=== PATIENT | male | born 1955 | race Two or more races ===

== ENCOUNTER 2018-03-21 08:42 | Emergency (ER) | payer OTHER ==
[~2018-03-21] VITALS: Ht 172.7 cm; Wt 70.9 kg
--- NOTE | 2018-03-21 09:52 | NUR ---
Report from BRIAN Hampton. Patient resting comfortably in [facility]. No needs.
[2018-03-21 10:03] LABS: BASOPHILS # (AUTO) 0.05 x10^3/uL (0-0.1); BASOPHILS % (AUTO) 1 % (0-1); EOSINOPHILS # (AUTO) 0.09 x10^3/uL (0-0.4); EOSINOPHILS % (AUTO) 1 % (1-7); LYMPHOCYTES # (AUTO) 1.24 x10^3/uL (1-3.4); LYMPHOCYTES % (AUTO) 15 % (22-44); MD NO; MEAN CORPUSCULAR HEMOGLOBIN 22.7 pg (27.5-34.5); MEAN CORPUSCULAR HGB CONC 31.9 g/dL (33.2-36.2); MEAN CORPUSCULAR VOLUME 71.3 fL (81-97); MEAN PLATELET VOLUME 8.9 fL (7.4-10.4); MONOCYTES # (AUTO) 0.95 x10^3/uL (0.2-0.8); MONOCYTES % (AUTO) 11 % (2-9); NEUTROPHILS # (AUTO) 6.02 x10^3/uL (1.8-6.8); NEUTROPHILS % (AUTO) 72 % (42-75); PLATELET COUNT 199 x10^3/uL (130-400); RED CELL DISTRIBUTION WIDTH 14.9 % (9.4-14.8)
[2018-03-21 10:05] LABS: ANION GAP 3 mmol/L (5-15); CALCIUM 9.9 mg/dL (8.5-10.1); CHLORIDE 106 mmol/L (98-107); INTERNATIONAL NORMALIZED RATIO 2.84 (0.93-1.1); PROTHROMBIN TIME 28.9 Seconds (9.6-11.5)
[2018-03-21 10:11] LABS: HCT (SEDRATE) 45.6 % (39.2-51.8)
--- NOTE | 2018-03-21 10:38 | NUR ---
Daughter at bedside. Provided with blanket.
[2018-03-21 11:42] VITALS: BP 135/65
== END 2018-03-21 12:14 ==
LOC: ED 10:30
DX: L03.032 Cellulitis of left toe (principal); M10.072 Idiopathic gout, left ankle and foot; R73.9 Hyperglycemia, unspecified; I10 Essential (primary) hypertension; Z95.2 Presence of prosthetic heart valve
CPT/HCPCS: 36415; 80048; 82040; 84550; 85025; 85610; 85651; 85730; 86141; 99284

== ENCOUNTER 2019-06-21 13:23 | Emergency (ER) | payer OTHER ==
[~2019-06-21] VITALS: Ht 172.7 cm; Wt 72.3 kg
--- NOTE | 2019-06-21 13:40 | NUR ---
PT STATES HE HAS NAUSEA, DIZZINESS AND BLURRED VISION STARTING THIS AM. NO CP OR SOB. PT NOT IN DISTRESS. NEURO INTACT. VSS.
--- NOTE | 2019-06-21 14:21 | NUR ---
LAB IN TO DRAW.
[2019-06-21 14:41] LABS: BASOPHILS # (AUTO) 0.02 x10^3/uL (0-0.1); BASOPHILS % (AUTO) 0 % (0-1); EOSINOPHILS # (AUTO) 0.38 x10^3/uL (0-0.4); EOSINOPHILS % (AUTO) 5 % (1-7); LYMPHOCYTES # (AUTO) 1.16 x10^3/uL (1-3.4); LYMPHOCYTES % (AUTO) 16 % (22-44); MD NO; MEAN CORPUSCULAR HEMOGLOBIN 23.8 pg (27.5-34.5); MEAN CORPUSCULAR HGB CONC 31.4 g/dL (33.2-36.2); MEAN CORPUSCULAR VOLUME 75.8 fL (81-97); MEAN PLATELET VOLUME 8.5 fL (7.4-10.4); MONOCYTES # (AUTO) 0.38 x10^3/uL (0.2-0.8); MONOCYTES % (AUTO) 5 % (2-9); NEUTROPHILS # (AUTO) 5.17 x10^3/uL (1.8-6.8); NEUTROPHILS % (AUTO) 73 % (42-75); PLATELET COUNT 219 x10^3/uL (130-400); RED BLOOD COUNT 5.62 x10^6/uL (4.38-5.82); RED CELL DISTRIBUTION WIDTH 16.4 % (9.4-14.8)
[2019-06-21 14:43] LABS: INTERNATIONAL NORMALIZED RATIO 1.99 (0.93-1.1); PROTHROMBIN TIME 21.2 Seconds (9.6-11.5)
[2019-06-21 14:46] LABS: ALBUMIN 3.8 g/dL (3.4-5.0); ANION GAP 6 mmol/L (5-15); CALCIUM 9.3 mg/dL (8.5-10.1); CHLORIDE 109 mmol/L (98-107)
[2019-06-21 14:51] LABS: ALANINE AMINOTRANSFERASE 28 U/L (12-78); ALKALINE PHOSPHATASE 80 U/L (45-117); BILIRUBIN,TOTAL 0.7 mg/dL (0.2-1.0); CREATININE 1.24 mg/dL (0.7-1.3); TOTAL PROTEIN 8.1 g/dL (6.4-8.2)
[2019-06-21 15:06] VITALS: BP 168/68
--- NOTE | 2019-06-21 15:06 | NUR ---
Patient/Caregiver given discharge instructions and they have confirmed that they understand the instructions. Patient ambulatory with steady gait.
== END 2019-06-21 15:08 | disposition home or self-care (01) ==
LOC: ED 14:57
DX: R53.1 Weakness (principal); R11.0 Nausea; R42 Dizziness and giddiness; R41.0 Disorientation, unspecified; I10 Essential (primary) hypertension; E11.9 Type 2 diabetes mellitus without complications; Z79.01 Long term (current) use of anticoagulants
CPT/HCPCS: 36415; 80053; 84484; 85025; 85610; 99283

== ENCOUNTER 2019-06-24 13:56 | Inpatient (IN) | payer OTHER ==
[~2019-06-24] VITALS: Ht 172.7 cm; Wt 64.4 kg
[2019-06-24 15:52] LABS: BASOPHILS # (AUTO) 0.05 x10^3/uL (0-0.1); BASOPHILS % (AUTO) 1 % (0-1); EOSINOPHILS # (AUTO) 0.33 x10^3/uL (0-0.4); EOSINOPHILS % (AUTO) 4 % (1-7); LYMPHOCYTES # (AUTO) 1.31 x10^3/uL (1-3.4); LYMPHOCYTES % (AUTO) 16 % (22-44); MD NO; MEAN CORPUSCULAR HEMOGLOBIN 23.8 pg (27.5-34.5); MEAN CORPUSCULAR HGB CONC 31.6 g/dL (33.2-36.2); MEAN CORPUSCULAR VOLUME 75.3 fL (81-97); MEAN PLATELET VOLUME 8.5 fL (7.4-10.4); MONOCYTES # (AUTO) 0.72 x10^3/uL (0.2-0.8); MONOCYTES % (AUTO) 9 % (2-9); NEUTROPHILS # (AUTO) 5.71 x10^3/uL (1.8-6.8); NEUTROPHILS % (AUTO) 70 % (42-75); PLATELET COUNT 204 x10^3/uL (130-400); RED CELL DISTRIBUTION WIDTH 16.3 % (9.4-14.8)
--- NOTE | 2019-06-24 16:01 | NUR ---
PT RESTING IN [facility]. VSS. NAD. SON IS BEDSIDE. NO NEEDS AT THIS TIME
[2019-06-24 16:05] LABS: ANION GAP 6 mmol/L (5-15); CALCIUM 8.8 mg/dL (8.5-10.1); CHLORIDE 106 mmol/L (98-107); CREATININE 1.37 mg/dL (0.7-1.3)
[2019-06-24 16:06] LABS: ALANINE AMINOTRANSFERASE 28 U/L (12-78); ALBUMIN 3.7 g/dL (3.4-5.0)
[2019-06-24 16:09] LABS: ALKALINE PHOSPHATASE 85 U/L (45-117); BILIRUBIN,TOTAL 0.5 mg/dL (0.2-1.0); TOTAL PROTEIN 8.1 g/dL (6.4-8.2); TROPONIN I 0.018 ng/mL (0.000-0.045)
[2019-06-24] MEDS ORDERED: ASPIRIN 325 MG TABLET ONE (17:50)
[2019-06-24] MEDS ORDERED: ASPIRIN 325 MG TABLET PO ONE (18:00)
--- NOTE | 2019-06-24 18:17 | NUR ---
PT RESTING IN [facility]. TBADM. EDUCATED ON PLAN OF CARE
[2019-06-24 18:33] LABS: INTERNATIONAL NORMALIZED RATIO 1.93 (0.93-1.1); PROTHROMBIN TIME 20.6 Seconds (9.6-11.5)
--- NOTE | 2019-06-24 18:42 | NUR ---
BREAK RN: PT OOB GAIT STEADY TO BATHROOM W/ FAMILY MEMBER. TBADM. AWAITING MRI.
--- NOTE | 2019-06-24 19:18 | NUR ---
PT TO MRI AT THIS TIME
[2019-06-24] MEDS ORDERED: BISACODYL 10 MG SUPP PR PRN (19:30)
[2019-06-24] MEDS ORDERED: POLYETHYLENE GLYCOL 17 GM PACKET PO PRN (19:30)
[2019-06-24] MEDS ORDERED: DOCUSATE 100 MG CAPSULE PO PRN (19:30)
[2019-06-24] MEDS ORDERED: HEPARIN wt. based STROKE protocol MC SCH (19:30)
[2019-06-24 21:00] VITALS: BP 158/81
[2019-06-24] MEDS ORDERED: ATORVASTATIN 40 MG TABLET PO SCH (21:00)
[2019-06-24] MEDS ORDERED: CLOPIDOGREL 300 MG TABLET PO ONE (21:00)
[2019-06-24] MEDS: ACETAMINOPHEN 650 MG/20.3 ML UDC PO PRN (21:20)
[2019-06-24] MEDS: ATORVASTATIN 80 MG TABLET PO SCH (21:20)
[2019-06-24] MEDS: INSULIN LISPRO 100 UNITS/ML, PEN SQ-INSULIN SCH (21:25)
[2019-06-24] MEDS ORDERED: HEPARIN 25,000 UNITS/250ML PMX 250 ML IV PRN (21:30)
[2019-06-24] MEDS ORDERED: WARFARIN 2.5 MG TABLET PO-COUM ONE (21:30)
[2019-06-24] MEDS ORDERED: PROB500T22 PO (22:30)
[2019-06-24] MEDS ORDERED: AMLO10TA8 PO (22:36)
[2019-06-24] MEDS ORDERED: METO-290 PO (22:36)
[2019-06-24] MEDS ORDERED: Colchicine (22:36)
[2019-06-24] MEDS ORDERED: METF500T17 PO (22:37)
[2019-06-24] MEDS ORDERED: WARF1TAB74 PO (22:38)
[2019-06-24 23:00] VITALS: BP 142/69
[2019-06-24] MEDS ORDERED: COLCHICINE 0.6 MG CAPSULE PO ONE (23:00)
[2019-06-24] MEDS: metFORMIN 500 MG TABLET PO SCH (23:06)
[2019-06-24] MEDS: PROBENECID 500 MG TABLET PO SCH (23:06)
[2019-06-25] VITALS (7 sets, daily range): BP systolic 128–146; BP diastolic 69–86
[2019-06-25] MEDS ORDERED: COLCHICINE 0.6 MG CAPSULE PO ONE
[2019-06-25] MEDS: ACETAMINOPHEN 650 MG/20.3 ML UDC PO PRN (01:20)
[2019-06-25 06:11] LABS: BASOPHILS # (AUTO) 0.01 x10^3/uL (0-0.1); BASOPHILS % (AUTO) 0 % (0-1); EOSINOPHILS # (AUTO) 0.03 x10^3/uL (0-0.4); EOSINOPHILS % (AUTO) 0 % (1-7); LYMPHOCYTES # (AUTO) 0.65 x10^3/uL (1-3.4); LYMPHOCYTES % (AUTO) 5 % (22-44); MD NO; MEAN CORPUSCULAR HEMOGLOBIN 23.7 pg (27.5-34.5); MEAN CORPUSCULAR HGB CONC 31.4 g/dL (33.2-36.2); MEAN CORPUSCULAR VOLUME 75.2 fL (81-97); MEAN PLATELET VOLUME 8.7 fL (7.4-10.4); MONOCYTES # (AUTO) 0.23 x10^3/uL (0.2-0.8); MONOCYTES % (AUTO) 2 % (2-9); NEUTROPHILS # (AUTO) 11.28 x10^3/uL (1.8-6.8); NEUTROPHILS % (AUTO) 92 % (42-75); PLATELET COUNT 205 x10^3/uL (130-400); RED BLOOD COUNT 5.94 x10^6/uL (4.38-5.82); RED CELL DISTRIBUTION WIDTH 15.4 % (9.4-14.8)
[2019-06-25 06:14] LABS: CHLORIDE 106 mmol/L (98-107)
[2019-06-25 06:25] LABS: ALANINE AMINOTRANSFERASE 29 U/L (12-78); ALBUMIN 3.8 g/dL (3.4-5.0); ALKALINE PHOSPHATASE 86 U/L (45-117); ANION GAP 7 mmol/L (5-15); BILIRUBIN,TOTAL 1.3 mg/dL (0.2-1.0); CALCIUM 9.5 mg/dL (8.5-10.1); CHOL/HDL RATIO 3.6; CHOLESTEROL, TOTAL 175 mg/dL (140-239); CREATININE 1.14 mg/dL (0.7-1.3); HDL CHOL % 27 % (26-37); HDL CHOLESTEROL (DIRECT) 48 mg/dL (40-60); LDL CHOLESTEROL,CALCULATED 109 mg/dL (54-169); LDL/HDL RATIO 2.3 (0.5-3.0); TOTAL PROTEIN 8.5 g/dL (6.4-8.2); TRIGLYCERIDES 92 mg/dL (50-200); VLDL CHOLESTEROL 18 mg/dL (0-25)
[2019-06-25 06:33] LABS: INTERNATIONAL NORMALIZED RATIO 2.3 (0.93-1.1); PROTHROMBIN TIME 24.6 Seconds (9.6-11.5)
[2019-06-25] MEDS: INSULIN LISPRO 100 UNITS/ML, PEN SQ-INSULIN SCH ×4 (08:24→20:38)
[2019-06-25] MEDS ORDERED: ASPIRIN 81 MG TABLET CHEW PO/NG SCH (09:00)
[2019-06-25] MEDS ORDERED: CLOPIDOGREL 75 MG TABLET PO SCH (09:00)
[2019-06-25] MEDS: metFORMIN 500 MG TABLET PO SCH ×2 (09:11→20:41)
[2019-06-25] MEDS: PROBENECID 500 MG TABLET PO SCH ×2 (09:12→20:41)
[2019-06-25] MEDS: AMLODIPINE 10 MG TAB PO SCH (09:12)
[2019-06-25] MEDS: METOPROLOL SUCCINATE 100 MG TAB.ER.24H PO SCH (09:12)
[2019-06-25] MEDS ORDERED: HEPARIN 25,000 UNITS/250ML PMX 250 ML ONE (10:46)
[2019-06-25] MEDS ORDERED: DO NOT GIVE XX PRN (11:00)
[2019-06-25] MEDS ORDERED: HEPARIN wt. based STROKE protocol MC PRN (11:00)
[2019-06-25] MEDS ORDERED: HEPARIN 25,000 UNITS/250ML PMX 250 ML IV PRN (11:30)
[2019-06-25] MEDS ORDERED: methylPREDNISolone SOD SUCC 40 MG/ML IV SCH (12:30)
[2019-06-25] MEDS ORDERED: WARFARIN 2 MG TABLET PO-COUM ONE (18:00)
[2019-06-25] MEDS: ATORVASTATIN 80 MG TABLET PO SCH (20:41)
[2019-06-25 20:45] LABS: INTERNATIONAL NORMALIZED RATIO 2.71 (0.93-1.1)
[2019-06-26 00:55] VITALS: BP 123/69
[2019-06-26 05:00] VITALS: BP 130/72
[2019-06-26 05:17] LABS: INTERNATIONAL NORMALIZED RATIO 3.02 (0.93-1.1); PROTHROMBIN TIME 32.4 Seconds (9.6-11.5)
[2019-06-26 06:44] VITALS: BP 130/68
[2019-06-26] MEDS: AMLODIPINE 10 MG TAB PO SCH (08:09)
[2019-06-26] MEDS: FERROUS SULFATE 325 MG TABLET PO SCH ×2 (08:09→17:54)
[2019-06-26] MEDS: INSULIN LISPRO 100 UNITS/ML, PEN SQ-INSULIN SCH ×4 (08:09→20:41)
[2019-06-26] MEDS: metFORMIN 500 MG TABLET PO SCH ×2 (08:09→20:42)
[2019-06-26] MEDS: METOPROLOL SUCCINATE 100 MG TAB.ER.24H PO SCH (08:09)
[2019-06-26] MEDS: PROBENECID 500 MG TABLET PO SCH ×2 (08:09→20:41)
[2019-06-26] MEDS: ONDANSETRON 4 MG TABLET PO PRN (12:48)
[2019-06-26 13:30] VITALS: BP 131/60
[2019-06-26] MEDS ORDERED: methylPREDNISolone SOD SUCC 40 MG/ML IV ONE (15:00)
[2019-06-26 16:37] VITALS: BP 130/77
[2019-06-26] MEDS ORDERED: WARFARIN 2 MG TABLET PO-COUM ONE (18:00)
[2019-06-26 20:23] VITALS: BP 136/82
[2019-06-26] MEDS: ATORVASTATIN 80 MG TABLET PO SCH (20:41)
[2019-06-27 02:46] VITALS: BP 128/76
[2019-06-27 05:35] LABS: INTERNATIONAL NORMALIZED RATIO 3.37 (0.93-1.1); PROTHROMBIN TIME 36.2 Seconds (9.6-11.5)
[2019-06-27 05:42] LABS: BASOPHILS % (AUTO) 0 % (0-1); EOSINOPHILS % (AUTO) 0 % (1-7); LYMPHOCYTES # (AUTO) 0.76 x10^3/uL (1-3.4); LYMPHOCYTES % (AUTO) 8 % (22-44); MD NO; MEAN CORPUSCULAR HEMOGLOBIN 23.9 pg (27.5-34.5); MEAN CORPUSCULAR HGB CONC 31.3 g/dL (33.2-36.2); MEAN CORPUSCULAR VOLUME 76.6 fL (81-97); MEAN PLATELET VOLUME 8.7 fL (7.4-10.4); MONOCYTES # (AUTO) 0.29 x10^3/uL (0.2-0.8); MONOCYTES % (AUTO) 3 % (2-9); NEUTROPHILS # (AUTO) 8.83 x10^3/uL (1.8-6.8); NEUTROPHILS % (AUTO) 89 % (42-75); PLATELET COUNT 221 x10^3/uL (130-400); RED BLOOD COUNT 5.57 x10^6/uL (4.38-5.82); RED CELL DISTRIBUTION WIDTH 15.9 % (9.4-14.8)
[2019-06-27 05:52] LABS: CHLORIDE 106 mmol/L (98-107)
[2019-06-27 05:56] LABS: ANION GAP 8 mmol/L (5-15); CALCIUM 9.3 mg/dL (8.5-10.1); CREATININE 1.43 mg/dL (0.7-1.3)
[2019-06-27 06:34] VITALS: BP 139/69
[2019-06-27] MEDS: SODIUM CHLORIDE 0.9% 1,000 ML IV SCH (08:06)
[2019-06-27] MEDS: metFORMIN 500 MG TABLET PO SCH ×2 (08:06→20:39)
[2019-06-27] MEDS: FERROUS SULFATE 325 MG TABLET PO SCH ×2 (08:07→16:33)
[2019-06-27] MEDS: PROBENECID 500 MG TABLET PO SCH ×2 (08:07→20:40)
[2019-06-27] MEDS: AMLODIPINE 10 MG TAB PO SCH (08:07)
[2019-06-27] MEDS: INSULIN LISPRO 100 UNITS/ML, PEN SQ-INSULIN SCH ×4 (08:07→20:41)
[2019-06-27] MEDS: METOPROLOL SUCCINATE 100 MG TAB.ER.24H PO SCH (08:07)
[2019-06-27 12:04] VITALS: BP 127/68
[2019-06-27] MEDS: ONDANSETRON 4 MG TABLET PO PRN (16:32)
[2019-06-27] MEDS ORDERED: WARFARIN 1 MG TABLET PO-COUM ONE (18:00)
[2019-06-27 19:37] VITALS: BP 138/63
[2019-06-27] MEDS: ATORVASTATIN 80 MG TABLET PO SCH (20:40)
[2019-06-28] VITALS (7 sets, daily range): BP systolic 95–147; BP diastolic 54–81
[2019-06-28] MEDS: ACETAMINOPHEN 650 MG/20.3 ML UDC PO PRN (00:32)
[2019-06-28] MEDS: SODIUM CHLORIDE 0.9% 1,000 ML IV SCH ×2 (00:38→16:55)
[2019-06-28] MEDS ORDERED: ALUMINUM/MAG/SIMETHICONE 30 ML UDC PO ONE (01:30)
[2019-06-28 06:17] LABS: ANION GAP 5 mmol/L (5-15); CALCIUM 8.5 mg/dL (8.5-10.1); CHLORIDE 110 mmol/L (98-107)
[2019-06-28 06:20] LABS: CREATININE 1.24 mg/dL (0.7-1.3)
[2019-06-28 06:58] LABS: INTERNATIONAL NORMALIZED RATIO 3.93 (0.93-1.1); PROTHROMBIN TIME 42.2 Seconds (9.6-11.5)
[2019-06-28] MEDS: INSULIN LISPRO 100 UNITS/ML, PEN SQ-INSULIN SCH ×4 (07:00→19:27)
[2019-06-28] MEDS: METOPROLOL SUCCINATE 100 MG TAB.ER.24H PO SCH (08:50)
[2019-06-28] MEDS: FERROUS SULFATE 325 MG TABLET PO SCH (08:50)
[2019-06-28] MEDS: metFORMIN 500 MG TABLET PO SCH ×2 (08:50→20:22)
[2019-06-28] MEDS: AMLODIPINE 10 MG TAB PO SCH (08:50)
[2019-06-28] MEDS: PROBENECID 500 MG TABLET PO SCH ×3 (08:50→21:00)
[2019-06-28] MEDS: ONDANSETRON 4 MG TABLET PO PRN ×3 (08:51→19:27)
[2019-06-28] MEDS: PANTOPRAZOLE 40MG TABLET PO SCH (16:54)
[2019-06-28] MEDS: ATORVASTATIN 80 MG TABLET PO SCH (20:22)
[2019-06-28] MEDS: OXYcodone IR 5MG TABLET PO PRN (21:39)
[2019-06-28] MEDS: PROMETHAZINE 25 MG/ML, 1ML IM PRN (21:39)
[2019-06-29 01:02] VITALS: BP 135/69
[2019-06-29] MEDS: PANTOPRAZOLE 40MG TABLET PO SCH ×2 (05:13→16:52)
[2019-06-29] MEDS: OXYcodone IR 5MG TABLET PO PRN ×2 (06:30→12:30)
[2019-06-29] MEDS: INSULIN LISPRO 100 UNITS/ML, PEN SQ-INSULIN SCH ×3 (07:00→16:53)
[2019-06-29 07:20] LABS: INTERNATIONAL NORMALIZED RATIO 3.31 (0.93-1.1); PROTHROMBIN TIME 35.5 Seconds (9.6-11.5)
[2019-06-29 07:40] VITALS: BP 123/74
[2019-06-29] MEDS: metFORMIN 500 MG TABLET PO SCH (09:47)
[2019-06-29] MEDS: PROBENECID 500 MG TABLET PO SCH (09:47)
[2019-06-29] MEDS: AMLODIPINE 10 MG TAB PO SCH (09:47)
[2019-06-29] MEDS: METOPROLOL SUCCINATE 100 MG TAB.ER.24H PO SCH (09:47)
[2019-06-29] MEDS: ONDANSETRON 4 MG TABLET PO PRN (09:57)
[2019-06-29] MEDS: SODIUM CHLORIDE 0.9% 1,000 ML IV SCH (09:57)
[2019-06-29] MEDS: PROMETHAZINE 25 MG/ML, 1ML IM PRN (12:41)
[2019-06-29 12:49] VITALS: BP 135/80
[2019-06-29] MEDS ORDERED: WARFARIN 1 MG TABLET PO-COUM ONE (13:39)
[2019-06-29] MEDS ORDERED: ATOR-2 PO (14:01)
[2019-06-29] MEDS ORDERED: ONDA-89 PO (14:01)
[2019-06-29] MEDS ORDERED: OXYC5TAB3 PO (14:01)
[2019-06-29] MEDS ORDERED: PANT40TA5 PO (14:01)
[2019-06-29] MEDS ORDERED: WARF2TAB PO-COUM (14:01)
[2019-06-29] MEDS ORDERED: WARFARIN 2 MG TABLET PO-COUM ONE ×2 (16:38→18:00)
== END 2019-06-29 17:48 | disposition home or self-care (01) | DRG 65 ==
LOC: ED 14:21 → EDIP 18:02 → 4EST 20:53
PROVIDERS: ADMIT Family Medicine; ATTEND Internal Medicine
DX: I63.40 Cerebral infarction due to embolism of unspecified cerebral artery (principal); D68.69 Other thrombophilia; I48.20 Chronic atrial fibrillation, unspecified; D50.9 Iron deficiency anemia, unspecified; E11.65 Type 2 diabetes mellitus with hyperglycemia; E78.5 Hyperlipidemia, unspecified; H54.7 Unspecified visual loss; I10 Essential (primary) hypertension; I25.2 Old myocardial infarction; I35.0 Nonrheumatic aortic (valve) stenosis; K29.70 Gastritis, unspecified, without bleeding; M19.041 Primary osteoarthritis, right hand; Z79.01 Long term (current) use of anticoagulants; M1A.9XX0 Chronic gout, unspecified, without tophus (tophi); Z80.9 Family history of malignant neoplasm, unspecified; Z86.73 Personal history of transient ischemic attack (TIA), and cerebral infarction without residual deficits; Z83.3 Family history of diabetes mellitus; Z87.891 Personal history of nicotine dependence; Z95.2 Presence of prosthetic heart valve; Z80.42 Family history of malignant neoplasm of prostate; Z79.84 Long term (current) use of oral hypoglycemic drugs
CPT/HCPCS: 36415; 70450; 70544; 70551; 71045; 80048; 80053; 80061; 82728; 82962; 83036; 83540; 83550; 83735; 84484; 85025; 85520; 85610; 93005; 93306; 93880; 99291; G0378; J2550; Q0162; 92523-GN; J1815; J2920; J7030; J7512

== ENCOUNTER 2020-02-07 10:53 | Emergency (ER) | payer MEDICAID, OTHER ==
[~2020-02-07] VITALS: Ht 172.7 cm; Wt 70.3 kg
[~2020-02-07 10:53] MED LIST: AMLO-211 PO; ATOR-2 PO; Colchicine; METF500T17 PO; METO-290 PO; ONDA-89 PO; OXYC5TAB3 PO; PANT40TA6 PO; PROB500T22 PO; WARF1TAB74 PO; WARF2TAB PO-COUM
--- NOTE | 2020-02-07 11:26 | NUR ---
THIS IS A 64 YO M W/ C/O ABD PAIN, LOW BACK PAIN AND DAILY NOSE BLEEDS X3 DAYS. PT REPORTS TAKING COUMADIN. PT HAD CVA IN 06/2019. PT RESTING ON GURNEY W/ CALL LIGHT IN REACH, FAMILY AT BEDSIDE AND SIDE RAILS UPX2. CONNECTED TO ALL MONITORING, VSS, BP EQUAL BILAT, NADN. PROVIDED BLANKET PER PT REQUEST. DENIES FURTHER NEEDS AT THIS TIME. AWAITING LABS AND US.
[2020-02-07 11:46] LABS: BASOPHILS % (AUTO) 1 % (0-1); EOSINOPHILS % (AUTO) 7 % (1-7); LYMPHOCYTES % (AUTO) 17 % (22-44); MEAN CORPUSCULAR HEMOGLOBIN 23.8 pg (27.5-34.5); MEAN CORPUSCULAR HGB CONC 31.7 g/dL (33.2-36.2); MEAN PLATELET VOLUME 7.3 fL (7.4-10.4); MONOCYTES % (AUTO) 8 % (2-9); NEUTROPHILS % (AUTO) 67 % (42-75); PLATELET COUNT 224 x10^3/uL (130-400); RED BLOOD COUNT 5.18 x10^6/uL (4.38-5.82); RED CELL DISTRIBUTION WIDTH 17.4 % (9.4-14.8)
[2020-02-07 11:48] LABS: MD NO
[2020-02-07 11:54] LABS: ALANINE AMINOTRANSFERASE 29 U/L (12-78); ANION GAP 5 mmol/L (5-15); CALCIUM 9.9 mg/dL (8.5-10.1); CHLORIDE 109 mmol/L (98-107); CREATININE 1.06 mg/dL (0.7-1.3); INTERNATIONAL NORMALIZED RATIO 2.9 (0.93-1.1); PROTHROMBIN TIME 30.4 Seconds (9.6-11.5)
[2020-02-07 11:56] LABS: ALKALINE PHOSPHATASE 92 U/L (45-117); BILIRUBIN,TOTAL 0.7 mg/dL (0.2-1.0); TOTAL PROTEIN 8.2 g/dL (6.4-8.2)
--- NOTE | 2020-02-07 12:08 | NUR ---
PT AMBULATORY W/ A STEADY GAIT TO THE BR.
--- NOTE | 2020-02-07 12:15 | NUR ---
PT RETURNED TO ROOM W/O INCIDENT. ALL TESTS RESULTED. PT IS UP FOR RECHECK AT THIS TIME.
--- NOTE | 2020-02-07 12:54 | NUR ---
REPORT GIVEN TO FIDEL TORRES. PT RESTING ON GURNEY W/ CALL LIGHT IN REACH, FAMILY AT BEDSIDE AND SIDE RAILS UPX2, RESP EVEN AND UNLABORED, NADN. AWAITING MD LI.
[2020-02-07 14:02] VITALS: BP 120/65
== END 2020-02-07 14:04 | disposition home or self-care (01) ==
LOC: ED 11:28
DX: R04.0 Epistaxis (principal); R10.13 Epigastric pain; I10 Essential (primary) hypertension; E11.9 Type 2 diabetes mellitus without complications; M10.9 Gout, unspecified; Z87.891 Personal history of nicotine dependence
CPT/HCPCS: 36415; 76700; 80053; 83690; 85025; 85610; 99285

== ENCOUNTER 2020-02-19 22:44 | Emergency (ER) | payer MEDICAID ==
[~2020-02-19] VITALS: Ht 172.7 cm; Wt 77.0 kg
[2020-02-19] MEDS ORDERED: LORazepam 0.5MG TABLET PO ONE (23:30)
[2020-02-19] MEDS ORDERED: LORazepam 0.5MG TABLET ONE (23:37)
[2020-02-20 00:18] VITALS: BP 134/78
== END 2020-02-20 00:20 | disposition home or self-care (01) ==
LOC: ED 23:29
DX: F41.1 Generalized anxiety disorder (principal); I10 Essential (primary) hypertension; E11.9 Type 2 diabetes mellitus without complications; M19.90 Unspecified osteoarthritis, unspecified site; Z87.891 Personal history of nicotine dependence
CPT/HCPCS: 99283